=== PATIENT | male | born 1990 | race Caucasian/White ===

== ENCOUNTER 2017-08-16 16:46 | Emergency (ER) | payer OTHER ==
[~2017-08-16] VITALS: Ht 182.9 cm; Wt 72.6 kg
[~2017-08-16 16:46] MED LIST: AMOX1TAB12 PO; Carafate Susp 1G/10ML BLIST.PACK PO; INTEGRA F CAPS1 EACH PO; Neurin-Sl Tablet Sl SL; PROTONIX40 MG PO
== END 2017-08-16 18:23 | disposition home or self-care (01) ==
LOC: ER 16:46
DX: B34.9 Viral infection, unspecified (principal)